=== PATIENT | female | born 1960 | race Two or more races ===

== ENCOUNTER 2021-01-19 19:56 | Emergency (ER) | payer OTHER ==
[2021-01-19 20:25] VITALS: BMI 25.4
[2021-01-19] MEDS ORDERED: METOCLOPRAMIDE HCL 10 MG TABLET (FP) PO ONE ×2 (22:25→22:51)
[2021-01-19] MEDS ORDERED: KETOROLAC TROMETHAMINE 60 MG/2 ML VIAL IM ONE (22:25)
[2021-01-19] MEDS ORDERED: KETOROLAC TROMETHAMINE 30 MG/1 ML VIAL ONE (22:51)
[2021-01-19 23:36] LABS: BASO % 0.7 % (0-2.0); EOS % 1.4 % (0-4.5); HEMATOCRIT 37.7 % (32.4-45.2); HEMOGLOBIN 12.2 GM/dL (10.7-15.3); MCH 27.3 pg (25.7-33.7); MCHC 32.3 g/dl (32.0-36.0); MEAN CELL VOLUME 84.6 fl (80-96); MEAN PLT VOLUME 9.2 fl (7.5-11.1); MONO % 5.6 % (3.8-10.2); NEUT % 56.3 % (42.8-82.8); PLATELET COUNT 225 10^3/uL (134-434); RBC 4.45 M/mm3 (3.60-5.2); RDW 14.4 % (11.6-15.6); WHITE BLOOD COUNT 5.8 K/mm3 (4.0-10.0)
[2021-01-19 23:52] LABS: CHLORIDE 109 mmol/L (98-107); SODIUM 142 mmol/L (136-145)
[2021-01-19 23:56] LABS: CALCIUM 8.4 mg/dL (8.5-10.1)
[2021-01-19 23:57] LABS: ALBUMIN 3.8 g/dl (3.4-5.0); ANION GAP 5 MMOL/L (8-16); BLOOD UREA NITROGEN 15.1 mg/dL (7-18); CO2 27 mmol/L (21-32); GLUCOSE,RANDOM 142 mg/dL (74-106)
[2021-01-20] LABS: CREATININE 0.8 mg/dL (0.55-1.3); SGOT/AST 25 U/L (15-37); SGPT/ALT 31 U/L (13-61)
[2021-01-20 00:02] LABS: BILIRUBIN,TOTAL 0.2 mg/dL (0.2-1); TOT PROT 7.2 g/dl (6.4-8.2)
[2021-01-20 00:03] LABS: ALK PHOS 127 U/L (45-117)
[2021-01-20 01:13] VITALS: BP 132/86; PULSE 85; TEMP 98.3
== END 2021-01-20 01:13 | disposition left against medical advice (07) ==
LOC: JER 19:56 → JERFT 19:56 → JER 01-20 01:13
PROC: 3E0233Z Introduction of Anti-inflammatory into Muscle, Percutaneous Approach (ICD-10-PCS; principal; 2021-01-19)
DX: R20.2 Paresthesia of skin (principal)
CPT/HCPCS: 36415; 70450-TC; 80053; 82550; 82553; 84484; 85025; 96372; 99285-25

== ENCOUNTER 2022-04-28 12:29 | Emergency (ER) | payer OTHER ==
[2022-04-28 13:02] VITALS: PULSE 66; RESP 19; TEMP 97.9; BMI 25.0
[2022-04-28 14:14] VITALS: BP 139/85
== END 2022-04-28 14:29 | disposition home or self-care (01) ==
LOC: JER 12:29
DX: R03.0 Elevated blood-pressure reading, without diagnosis of hypertension (principal)
CPT/HCPCS: 99283-25